=== PATIENT | male | born 1950 | race Caucasian/White ===

== ENCOUNTER → 2017-08-03 | Outpatient (CLI) | payer MEDICARE, BC ==
[~2017-08-03] MED LIST: ATORVASTATIN CA80 MG PO; AUGMENTIN 875-1 EACH PO; BACTROBAN2% TP; BISOPROLOL 5MG T5 MG PO; CLOPIDOGREL75 M2 PO; HYDROCODONE-APA1 TA1 PO; KEFLEX 500MG.500 MG PO; LISINOPRIL2.5 M1 PO; PANTOPRAZOLE SO40 M1 PO; PERCOCET 5/3251 EACH PO; TAMSULOSIN HCL0.4 MG PO
[2017-08-03 07:51] LABS: BILIRUBIN, INDIRECT 0.67 mg/dL (0-0.9)
== END ==
LOC: LAB 07:23
PROVIDERS: Internal Medicine
DX: I25.10 Atherosclerotic heart disease of native coronary artery without angina pectoris (principal); I10 Essential (primary) hypertension; E78.5 Hyperlipidemia, unspecified; I42.9 Cardiomyopathy, unspecified